=== PATIENT | male | born 1945 | race Caucasian/White ===

== ENCOUNTER → 2016-11-13 | Outpatient (CLI) | payer MEDICARE ==
[2016-11-13 11:54] LABS: BUN/CREATININE RATIO 18 (0-10)
== END ==
LOC: LAB 11:07
PROVIDERS: Internal Medicine Cardiovascular Disease
DX: I25.10 Atherosclerotic heart disease of native coronary artery without angina pectoris (principal)
CPT/HCPCS: 36415; 80053; 80061

== ENCOUNTER → 2016-12-31 | Outpatient (CLI) | payer MEDICARE | LOC: HEART 5 12-21 07:30 | DX: I25.10 Atherosclerotic heart disease of native coronary artery without angina pectoris (principal) | CPT/HCPCS: 78452; 93306; A9502; J2785 ==